=== PATIENT | male | born 1995 | race Caucasian/White ===

== ENCOUNTER 2019-02-27 20:53 | Emergency (ER) | payer OTHER ==
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
[2019-02-27 21:07] VITALS: BP 139/67; PULSE 103; TEMP 98.3; BMI 28.5
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
== END 2019-02-27 21:13 | disposition home or self-care (01) ==
LOC: JER 20:53
DX: S00.83XA Contusion of other part of head, initial encounter (principal); Y35.811A Legal intervention involving manhandling, law enforcement official injured, initial encounter; Y93.89 Activity, other specified; Y92.89 Other specified places as the place of occurrence of the external cause; Y99.0 Civilian activity done for income or pay
CPT/HCPCS: 99281-25

== ENCOUNTER 2019-04-22 04:29 | Emergency (ER) | payer OTHER ==
[2019-04-22 05:11] VITALS: BP 127/81; PULSE 98; TEMP 98.5; BMI 28.1
[2019-04-22] MEDS ORDERED: IBUPROFEN 600 MG TABLET (FP) PO ONE ×2 (05:40→05:46)
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
== END 2019-04-22 06:25 | disposition home or self-care (01) ==
LOC: JER 04:29
DX: S46.812A Strain of other muscles, fascia and tendons at shoulder and upper arm level, left arm, initial encounter (principal); Y35.811A Legal intervention involving manhandling, law enforcement official injured, initial encounter; Y93.89 Activity, other specified; Y92.89 Other specified places as the place of occurrence of the external cause; Y99.0 Civilian activity done for income or pay
CPT/HCPCS: 99283-25

== ENCOUNTER 2020-02-12 00:16 | Emergency (ER) | payer OTHER ==
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
[2020-02-12 00:32] VITALS: BP 121/77; PULSE 93; TEMP 98.6; BMI 30.4
== END 2020-02-12 00:48 | disposition home or self-care (01) ==
LOC: FER 00:16
DX: Z77.21 Contact with and (suspected) exposure to potentially hazardous body fluids (principal)
CPT/HCPCS: 99282-25

== ENCOUNTER 2020-07-20 22:54 | Emergency (ER) | payer OTHER ==
[2020-07-20 23:06] VITALS: BP 138/82; PULSE 92; TEMP 99.3; BMI 30.4
[2020-07-20] MEDS ORDERED: ACETAMINOPHEN 325 MG TABLET (FP) PO ONE (23:37)
[2020-07-20] MEDS ORDERED: ACETAMINOPHEN 325 MG TABLET (FP) ONE (23:41)
== END 2020-07-21 01:00 | disposition home or self-care (01) ==
LOC: FER 22:54
DX: M79.644 Pain in right finger(s) (principal)
CPT/HCPCS: 73130-TC-RT-FY; 99283-25

== ENCOUNTER 2020-11-26 19:46 | Emergency (ER) | payer OTHER ==
[2020-11-26 19:58] VITALS: BP 136/80; PULSE 76; TEMP 98.4; BMI 31.1
[2020-11-26] MEDS ORDERED: IBUPROFEN 600 MG TABLET (FP) PO ONE ×2 (20:10→20:13)
== END 2020-11-26 20:42 | disposition home or self-care (01) ==
LOC: FER 19:46
DX: S46.912A Strain of unspecified muscle, fascia and tendon at shoulder and upper arm level, left arm, initial encounter (principal)
CPT/HCPCS: 73070-TC-LT-FY; 99284-25

== ENCOUNTER 2021-03-21 22:06 | Emergency (ER) | payer OTHER ==
[2021-03-21 22:14] VITALS: BMI 31.1
[2021-03-21 22:20] VITALS: BP 136/88; PULSE 84; TEMP 97.9
== END 2021-03-21 22:51 | disposition home or self-care (01) ==
LOC: FER 22:06
DX: S80.01XA Contusion of right knee, initial encounter (principal); Y04.0XXA Assault by unarmed brawl or fight, initial encounter
CPT/HCPCS: 99282-25

== ENCOUNTER 2021-09-08 21:17 | Emergency (ER) | payer OTHER ==
[2021-09-08 21:28] VITALS: BP 147/86; PULSE 81; TEMP 98.9; BMI 30.1
== END 2021-09-08 22:40 | disposition home or self-care (01) ==
LOC: FER 21:17
DX: Z77.21 Contact with and (suspected) exposure to potentially hazardous body fluids (principal)
CPT/HCPCS: 99281-25

== ENCOUNTER 2022-02-08 18:13 | Emergency (ER) | payer OTHER ==
[2022-02-08 18:31] VITALS: BP 125/85; PULSE 105; TEMP 98.8; BMI 30.1
[2022-02-08] MEDS ORDERED: IBUPROFEN 600 MG TABLET (FP) PO ONE ×2 (21:04→21:05)
== END 2022-02-08 21:11 | disposition home or self-care (01) ==
LOC: FER 18:13
DX: S83.91XA Sprain of unspecified site of right knee, initial encounter (principal); X50.0XXA Overexertion from strenuous movement or load, initial encounter; Y35.91XA Legal intervention, means unspecified, law enforcement official injured, initial encounter
CPT/HCPCS: 93971-TC; 99284-25

== ENCOUNTER 2023-03-10 18:27 | Emergency (ER) | payer OTHER ==
[2023-03-10 18:59] VITALS: BP 124/75; PULSE 94; RESP 18; TEMP 97.8; BMI 32.3
== END 2023-03-10 18:55 | disposition home or self-care (01) ==
LOC: FER 18:27
DX: S69.91XA Unspecified injury of right wrist, hand and finger(s), initial encounter (principal); Y04.0XXA Assault by unarmed brawl or fight, initial encounter; Y99.0 Civilian activity done for income or pay
CPT/HCPCS: 99282-25

== ENCOUNTER 2023-04-14 00:31 | Emergency (ER) | payer OTHER ==
[2023-04-14 00:38] VITALS: BP 124/84; PULSE 82; RESP 14; TEMP 97.8; BMI 28.1
== END 2023-04-14 01:54 | disposition home or self-care (01) ==
LOC: FER 00:31
DX: S19.9XXA Unspecified injury of neck, initial encounter (principal); Y04.2XXA Assault by strike against or bumped into by another person, initial encounter
CPT/HCPCS: 70360-TC-FY; 71046-TC-FY; 99283-25